=== PATIENT | female | born 1985 | race Hispanic/Latino ===

== ENCOUNTER 2021-11-18 03:47 | Outpatient (CLI) | payer MEDICAID ==
[2021-11-18 04:13] VITALS: BP 113/58
[2021-11-18] MEDS ORDERED: MORPHINE 4 MG/1 ML INJ IM ONE (05:28)
--- NOTE | 2021-11-18 05:31 | Ultrasound Report ---
LIMITED OBSTETRICAL ULTRASOUND INDICATION: [id number] COMPARISON: None available FINDINGS: Single term intrauterine is noted in a cephalic position. Placenta is not well st udied but appears to be fundal and posterior and is free of the internal cervical os. Amniotic fluid volume appears appropriate and JOSE is within normal limits at 13.5 cm. cardiac activity was doc umented at 141 bpm. No obvious anomalies are seen though this was not an anatomic survey. Estimated g estational age is 36 weeks 3 days which corresponds reasonably well with clinical dating of 37 weeks 1 day. No significant discrepancy is seen between head and body measurements. Estimated weight is 2959 g +/- 4 138 g in the 40th percentile. IMPRESSION: Normal-appearing intrauterine at 36 weeks 3 days Signer Name: Lele Boston MD Signed: 11/18/2021 5:27 AM Workstation Name: [id number]
== END 2021-11-18 08:50 | disposition home or self-care (01) ==
LOC: TRG 03:47 → APU 03:53 → TRG 08:50
PROVIDERS: ATTEND Obstetrics & Gynecology Gynecology
DX: O62.9 Abnormality of forces of labor, unspecified (principal); O99.513 Diseases of the respiratory system complicating pregnancy, third trimester; J45.909 Unspecified asthma, uncomplicated; Z87.891 Personal history of nicotine dependence; Z3A.36 36 weeks gestation of pregnancy
CPT/HCPCS: 36415; 59025; 76816; 84112; 96372; J2270

== ENCOUNTER 2021-11-24 08:54 | Outpatient (CLI) | payer MEDICAID ==
[2021-11-24 09:29] VITALS: BP 114/58
== END 2021-11-24 11:05 | disposition home or self-care (01) ==
LOC: TRG 08:54 → APU 08:57 → TRG 11:05
PROVIDERS: ATTEND Obstetrics & Gynecology Gynecology
DX: O47.9 False labor, unspecified (principal); Z3A.38 38 weeks gestation of pregnancy
CPT/HCPCS: 59025